=== PATIENT | male | born 1985 ===

== ENCOUNTER → 2017-02-09 | Outpatient (REF) | payer OTHER | LOC: M LAB REF 12:35 | PROVIDERS: ATTEND Otolaryngology | DX: H60.93 Unspecified otitis externa, bilateral (principal) ==

== ENCOUNTER → 2017-05-02 | Outpatient (REF) | payer OTHER | LOC: M LAB REF 12:22 | PROVIDERS: ATTEND Otolaryngology | DX: H60.312 Diffuse otitis externa, left ear (principal) ==